=== PATIENT | male | born 1935 | race Caucasian/White ===

== ENCOUNTER 2017-08-25 23:30 | Inpatient (IN) ==
[2017-08-25] MEDS ORDERED: HYDROmorphone 2 MG/1 ML VIAL IV STA (23:59)
[2017-08-25] MEDS ORDERED: ONDANSETRON 4 MG/2 ML VIAL IV STA (23:59)
[2017-08-26] MEDS ORDERED: ONDANSETRON 4 MG/2 ML VIAL ONE (01:18)
[2017-08-26] MEDS ORDERED: HYDROmorphone 2 MG/1 ML VIAL ONE (01:18)
[2017-08-26 01:35] LABS: Basophils % 0.3 % (0.0-0.8); Eosinophils # 0.2 10*3/uL (0.0-0.87); Eosinophils % 1.7 % (0.00-10.9); Hematocrit 37.6 VOL% (42.0-52.0); Immature Granulocytes % 0.8 %; Immature Granulocytes Absolute 0.11 #; Lymphocytes % 7.7 % (21.2-54.2); Mean Corpuscular HGB Conc 31.9 GM/DL (32-36); Mean Corpuscular Hemoglobin 29 PG (27-34); Mean Corpuscular Volume 91.5 FL (87-102); Mean Platelet Volume 10.9 FL (9.6-12.0); Monocytes % 7.3 % (1.7-12.7); Neutrophils # 10.9 10*3/uL (1.4-7.4); Neutrophils % 82.2 % (38.7-73.9); Platelet Count 168 T/CUMM (130-400); Red Blood Count 4.11 MC/CUMM (3.8-5.5); Red Cell Distribution Width 14.8 % (9.3-17.3); White Blood Count 13.2 T/CUMM (4-12)
[2017-08-26 02:11] LABS: Albumin 3.2 G/DL (3.4-5.0); Bilirubin,Total 0.7 MG/DL (0.2-1.0); Calcium 8.4 MG/DL (8.5-10.1); Osmolality,Calculated 285.4 MOS/KG (273-304); Potassium 4.3 MMOL/L (3.5-5.1); Total Protein 5.5 G/DL (6.4-8.3)
[2017-08-26] MEDS ORDERED: HYDROmorphone 2 MG/1 ML VIAL IV ONE (03:40)
[2017-08-26] MEDS ORDERED: ONDANSETRON 4 MG/2 ML VIAL IV PRN (04:11)
[2017-08-26] MEDS: SODIUM CHLORIDE 0.9% 1,000 ML IV SCH ×2 (04:39→18:34)
[2017-08-26] MEDS: PANTOPRAZOLE 40 MG VIAL IV SCH (10:15)
[2017-08-26] MEDS: HYDROmorphone 2 MG/1 ML VIAL IV PRN ×3 (10:20→18:31)
[2017-08-26] MEDS: AMIODARONE 200 MG TABLET PO SCH (13:51)
[2017-08-26] MEDS: BUDESONIDE 0.5 MG/2 ML NEB RESP TX SCH ×2 (14:00→19:46)
[2017-08-26] MEDS: IPRATROPIUM 500 MCG/2.5 ML NEB RESP TX SCH ×2 (14:00→19:45)
[2017-08-26] MEDS: CYCLOBENZAPRINE 10 MG TABLET PO SCH (20:55)
[2017-08-27] MEDS: HYDROmorphone 2 MG/1 ML VIAL IV PRN ×5 (01:32→19:25)
[2017-08-27 06:50] LABS: Free T4 (Free Thyroxine) 0.89 NG/DL (0.76-1.46); Thyroid Stimulating Hormone 9.61 uIU/ml (0.358-3.74)
[2017-08-27] MEDS: IPRATROPIUM 500 MCG/2.5 ML NEB RESP TX SCH ×2 (06:58→19:34)
[2017-08-27] MEDS: BUDESONIDE 0.5 MG/2 ML NEB RESP TX SCH ×2 (06:58→19:34)
[2017-08-27] MEDS: PANTOPRAZOLE 40 MG VIAL IV SCH (09:41)
[2017-08-27] MEDS: AMIODARONE 200 MG TABLET PO SCH (09:48)
[2017-08-27 12:26] LABS: Prostate Specific Antigen Diag 2.1 NG/ML (0-4)
[2017-08-27] MEDS: SODIUM CHLORIDE 0.9% 1,000 ML IV SCH ×2 (14:34→21:30)
[2017-08-27] MEDS: CYCLOBENZAPRINE 10 MG TABLET PO SCH (21:31)
[2017-08-28] MEDS: HYDROmorphone 2 MG/1 ML VIAL IV PRN ×2 (03:20→15:37)
[2017-08-28 06:30] LABS: Basophils % 0.2 % (0.0-0.8); Eosinophils % 0.4 % (0.00-10.9); Hematocrit 27.3 VOL% (42.0-52.0); Hemoglobin 8.4 GM/DL (14.0-18.0); Immature Granulocytes % 0.9 %; Immature Granulocytes Absolute 0.09 #; Lymphocytes # 0.8 10*3/uL (1.4-4.0); Lymphocytes % 7.5 % (21.2-54.2); Mean Corpuscular HGB Conc 30.8 GM/DL (32-36); Mean Corpuscular Hemoglobin 29 PG (27-34); Mean Corpuscular Volume 94.5 FL (87-102); Mean Platelet Volume 11.5 FL (9.6-12.0); Monocytes % 9.3 % (1.7-12.7); Neutrophils # 8.6 10*3/uL (1.4-7.4); Neutrophils % 81.7 % (38.7-73.9); Platelet Count 150 T/CUMM (130-400); Red Blood Count 2.89 MC/CUMM (3.8-5.5); Red Cell Distribution Width 15.2 % (9.3-17.3); White Blood Count 10.5 T/CUMM (4-12)
[2017-08-28 07:06] LABS: Potassium 4.4 MMOL/L (3.5-5.1)
[2017-08-28] MEDS: BUDESONIDE 0.5 MG/2 ML NEB RESP TX SCH ×2 (07:35→19:18)
[2017-08-28] MEDS: IPRATROPIUM 500 MCG/2.5 ML NEB RESP TX SCH (07:35)
[2017-08-28] MEDS: AMIODARONE 200 MG TABLET PO SCH (08:09)
[2017-08-28] MEDS: PANTOPRAZOLE 40 MG VIAL IV SCH (08:09)
[2017-08-28 09:48] LABS: Albumin (SPE) Rel % 64.1 %; Total Protein (Chem) 4.6 G/DL (6.4-8.3)
[2017-08-28 09:49] LABS: Alpha 1 (SPE) 0.1 G/DL (0.1-0.4); Alpha 1 (SPE) Rel % 2.9 %; Alpha 2 (SPE) 0.6 G/DL (0.4-1.0); Alpha 2 (SPE) Rel % 13.6 %; Beta (SPE) 0.5 G/DL (0.5-1.1); Beta (SPE) Rel % 10.7 %; Gamma (SPE) 0.4 G/DL (0.7-1.7); Gamma (SPE) Rel % 8.7 %
[2017-08-28] MEDS ORDERED: ceFAZolin 1,000 MG VIAL ONE (13:11)
[2017-08-28] MEDS ORDERED: TRANEXAMIC ACID 1,000 MG/10 ML VIAL IV ONE (13:19)
[2017-08-28] MEDS: ALBUTEROL/IPRATROPIUM 3 ML NEB RESP TX SCH ×2 (13:30→19:18)
[2017-08-28] MEDS ORDERED: ceFAZolin 2,000 MG in PREMIX 1 EACH IV ONE (15:00)
[2017-08-28] MEDS: SODIUM CHLORIDE 0.9% 1,000 ML IV SCH ×2 (15:14→22:23)
[2017-08-28 15:16] LABS: Apearance,Urine CLEAR (Clear); Bilirubin,Urine Negative (Negative); Blood, Urine Negative (Negative); Glucose,Urine (UA) Negative (Negative); Ketones,Urine Negative (Negative); Mucus,Urine Occasional /LPF (Occasional); Nitrite,Urine Negative (Negative); Protein,Urine Negative; RBC,Urine 1 /HPF (0-4); Squamous Epithelial Cell,Urine Occasional /HPF (0-10); Urine Color Yellow (Yellow); Urine Specific Gravity 1.018 (1.001-1.035)
[2017-08-28 15:19] LABS: Basophils % 0.3 % (0.0-0.8); Eosinophils # 0.1 10*3/uL (0.0-0.87); Eosinophils % 0.6 % (0.00-10.9); Hematocrit 35.3 VOL% (42.0-52.0); Hemoglobin 11.2 GM/DL (14.0-18.0); Immature Granulocytes Absolute 0.11 #; Lymphocytes # 1.1 10*3/uL (1.4-4.0); Lymphocytes % 9.8 % (21.2-54.2); Mean Corpuscular HGB Conc 31.7 GM/DL (32-36); Mean Corpuscular Hemoglobin 30 PG (27-34); Mean Corpuscular Volume 94.1 FL (87-102); Mean Platelet Volume 11.1 FL (9.6-12.0); Monocytes # 1.1 10*3/uL (0.11-0.8); Monocytes % 10.2 % (1.7-12.7); Neutrophils # 8.4 10*3/uL (1.4-7.4); Neutrophils % 78.1 % (38.7-73.9); Platelet Count 149 T/CUMM (130-400); Red Blood Count 3.75 MC/CUMM (3.8-5.5); White Blood Count 10.8 T/CUMM (4-12)
[2017-08-28] MEDS ORDERED: NEOSTIGMINE 10 MG/10 ML VIAL ONE (15:24)
[2017-08-28] MEDS ORDERED: ONDANSETRON 4 MG/2 ML VIAL ONE (15:24)
[2017-08-28] MEDS ORDERED: SEVOFLURANE 1 UNIT/15 MINUTE INH ONE (15:24)
[2017-08-28] MEDS ORDERED: fentaNYL 100 MCG/2 ML VIAL ONE (15:24)
[2017-08-28] MEDS ORDERED: GLYCOPYRROLATE 0.4 MG/2 ML VIAL ONE (15:24)
[2017-08-28] MEDS ORDERED: ACETAMINOPHEN 1,000 MG/100 ML VIAL IV ONE (15:25)
[2017-08-28] MEDS ORDERED: ETOMIDATE 40 MG/20 ML VIAL IV ONE (15:25)
[2017-08-28] MEDS ORDERED: ROCURONIUM 100 MG/10 ML VIAL IV ONE (15:26)
[2017-08-28] MEDS ORDERED: HYDROmorphone 2 MG/1 ML VIAL ONE (15:37)
[2017-08-28 15:47] LABS: Calcium 7.7 MG/DL (8.5-10.1); Osmolality,Calculated 283.4 MOS/KG (273-304); Potassium 4.6 MMOL/L (3.5-5.1)
[2017-08-28] MEDS ORDERED: PROMETHAZINE 25 MG/1 ML VIAL IM PRN (16:18)
[2017-08-28] MEDS ORDERED: MORPHINE 10 MG/1 ML VIAL IM PRN (16:18)
[2017-08-28] MEDS: CYCLOBENZAPRINE 10 MG TABLET PO SCH (20:50)
[2017-08-29] MEDS: LEVOTHYROXINE 25 MCG TABLET PO SCH (06:21)
[2017-08-29 06:26] LABS: Basophils % 0.3 % (0.0-0.8); Eosinophils # 0.2 10*3/uL (0.0-0.87); Eosinophils % 1.6 % (0.00-10.9); Hematocrit 31.6 VOL% (42.0-52.0); Hemoglobin 10.5 GM/DL (14.0-18.0); Immature Granulocytes % 0.7 %; Immature Granulocytes Absolute 0.07 #; Lymphocytes # 0.7 10*3/uL (1.4-4.0); Lymphocytes % 7.5 % (21.2-54.2); Mean Corpuscular HGB Conc 33.2 GM/DL (32-36); Mean Corpuscular Hemoglobin 30 PG (27-34); Mean Corpuscular Volume 90.8 FL (87-102); Mean Platelet Volume 11.4 FL (9.6-12.0); Monocytes % 10.6 % (1.7-12.7); Neutrophils # 7.4 10*3/uL (1.4-7.4); Neutrophils % 79.3 % (38.7-73.9); Platelet Count 171 T/CUMM (130-400); Red Blood Count 3.48 MC/CUMM (3.8-5.5); Red Cell Distribution Width 15.5 % (9.3-17.3); White Blood Count 9.4 T/CUMM (4-12)
[2017-08-29 06:49] LABS: Lymphocytes 5 % (20-55); Segmented Neutrophils 87 % (50-85); Total Cells Counted 100
[2017-08-29 06:50] LABS: Microcytosis 1+; Ovalocytes Slight
[2017-08-29 06:51] LABS: Platelet Estimate Adequate
[2017-08-29 07:01] LABS: Calcium 7.6 MG/DL (8.5-10.1); Calcium 7.7 MG/DL (8.5-10.1); Osmolality,Calculated 283.3 MOS/KG (273-304); Potassium 4.2 MMOL/L (3.5-5.1)
[2017-08-29] MEDS ORDERED: ceFAZolin 2,000 MG in PREMIX 1 EACH IV ONE (07:24)
[2017-08-29] MEDS: ALBUTEROL/IPRATROPIUM 3 ML NEB RESP TX SCH ×3 (07:25→19:08)
[2017-08-29] MEDS: BUDESONIDE 0.5 MG/2 ML NEB RESP TX SCH ×2 (07:25→19:08)
[2017-08-29] MEDS: PANTOPRAZOLE 40 MG VIAL IV SCH (09:48)
[2017-08-29] MEDS: oxyCODONE/ACETAMINOPHEN 5-325 MG TABLET PO PRN (09:48)
[2017-08-29] MEDS: AMIODARONE 200 MG TABLET PO SCH (09:49)
[2017-08-29] MEDS ORDERED: FONDAPARINUX 2.5 MG/0.5 ML SYRINGE SUBCUT SCH (13:30)
[2017-08-29] MEDS: CARVEDILOL 3.125 MG TABLET PO SCH ×2 (13:39→21:23)
[2017-08-29] MEDS: APIXABAN 2.5 MG TABLET PO SCH ×2 (13:39→21:24)
[2017-08-29] MEDS: CYCLOBENZAPRINE 10 MG TABLET PO SCH (21:24)
[2017-08-29] MEDS: LISINOPRIL 2.5 MG TABLET PO SCH (21:25)
[2017-08-30] MEDS: oxyCODONE/ACETAMINOPHEN 5-325 MG TABLET PO PRN ×2 (01:07→16:29)
[2017-08-30] MEDS: LEVOTHYROXINE 25 MCG TABLET PO SCH (06:11)
[2017-08-30 06:31] LABS: Basophils % 0.2 % (0.0-0.8); Eosinophils # 0.2 10*3/uL (0.0-0.87); Hematocrit 31.4 VOL% (42.0-52.0); Hemoglobin 10.2 GM/DL (14.0-18.0); Immature Granulocytes Absolute 0.09 #; Lymphocytes # 0.9 10*3/uL (1.4-4.0); Lymphocytes % 10.3 % (21.2-54.2); Mean Corpuscular HGB Conc 32.5 GM/DL (32-36); Mean Corpuscular Hemoglobin 30 PG (27-34); Mean Corpuscular Volume 90.8 FL (87-102); Mean Platelet Volume 11.4 FL (9.6-12.0); Monocytes % 11.2 % (1.7-12.7); Neutrophils # 6.8 10*3/uL (1.4-7.4); Neutrophils % 75.3 % (38.7-73.9); Platelet Count 188 T/CUMM (130-400); Red Blood Count 3.46 MC/CUMM (3.8-5.5); Red Cell Distribution Width 15.6 % (9.3-17.3); White Blood Count 9.1 T/CUMM (4-12)
[2017-08-30 06:52] LABS: Giant Platelets Few; Hypochromasia 1+; Ovalocytes Slight; Platelet Estimate Normal
[2017-08-30 06:53] LABS: Microcytosis Slight
[2017-08-30 07:02] LABS: Calcium 7.9 MG/DL (8.5-10.1); Osmolality,Calculated 285.3 MOS/KG (273-304); Potassium 4.1 MMOL/L (3.5-5.1)
[2017-08-30] MEDS: ALBUTEROL/IPRATROPIUM 3 ML NEB RESP TX SCH ×3 (07:21→20:53)
[2017-08-30] MEDS: BUDESONIDE 0.5 MG/2 ML NEB RESP TX SCH ×2 (07:21→20:53)
[2017-08-30] MEDS: AMIODARONE 200 MG TABLET PO SCH (09:12)
[2017-08-30] MEDS: CARVEDILOL 3.125 MG TABLET PO SCH ×2 (09:12→21:46)
[2017-08-30] MEDS: PRAVASTATIN 40 MG TABLET PO SCH (09:12)
[2017-08-30] MEDS: PANTOPRAZOLE 40 MG TABLET PO SCH (09:12)
[2017-08-30] MEDS: ASPIRIN EC 81 MG TABLET PO SCH (09:12)
[2017-08-30] MEDS: LISINOPRIL 2.5 MG TABLET PO SCH ×2 (09:12→21:46)
[2017-08-30] MEDS: APIXABAN 2.5 MG TABLET PO SCH ×2 (09:12→21:46)
[2017-08-30] MEDS ORDERED: ACETAMINOPHEN 325 MG TABLET PO PRN (10:53)
[2017-08-30] MEDS: BISACODYL 5 MG TABLET PO SCH (11:10)
[2017-08-30] MEDS ORDERED: FUROSEMIDE 20 MG/2 ML VIAL IV ONE (16:08)
[2017-08-30] MEDS: PHENOL 1.4% THROAT SPRAY 177 ML BOTTLE PO PRN (16:30)
[2017-08-30] MEDS ORDERED: FUROSEMIDE 20 MG/2 ML VIAL IV SCH (16:30)
[2017-08-30] MEDS: CYCLOBENZAPRINE 10 MG TABLET PO SCH (21:46)
[2017-08-31] MEDS: LEVOTHYROXINE 25 MCG TABLET PO SCH (06:32)
[2017-08-31 07:11] LABS: Calcium 7.9 MG/DL (8.5-10.1); Osmolality,Calculated 289.1 MOS/KG (273-304)
[2017-08-31] MEDS: BUDESONIDE 0.5 MG/2 ML NEB RESP TX SCH (08:25)
[2017-08-31] MEDS: ALBUTEROL/IPRATROPIUM 3 ML NEB RESP TX SCH (08:25)
[2017-08-31] MEDS: oxyCODONE/ACETAMINOPHEN 5-325 MG TABLET PO PRN (09:23)
[2017-08-31] MEDS: AMIODARONE 200 MG TABLET PO SCH (09:23)
[2017-08-31] MEDS: LISINOPRIL 2.5 MG TABLET PO SCH (09:23)
[2017-08-31] MEDS: APIXABAN 2.5 MG TABLET PO SCH (09:23)
[2017-08-31] MEDS: PRAVASTATIN 40 MG TABLET PO SCH (09:23)
[2017-08-31] MEDS: PHENOL 1.4% THROAT SPRAY 177 ML BOTTLE PO PRN (09:23)
[2017-08-31] MEDS: CARVEDILOL 3.125 MG TABLET PO SCH (09:23)
[2017-08-31] MEDS: PANTOPRAZOLE 40 MG TABLET PO SCH (09:23)
[2017-08-31] MEDS: ASPIRIN EC 81 MG TABLET PO SCH (09:23)
[2017-08-31] MEDS: BISACODYL 5 MG TABLET PO SCH (09:23)
[2017-08-31 11:27] VITALS: BP 132/65
== END 2017-08-31 13:30 | disposition swing bed (61) | DRG 481 ==
LOC: EDUNIT# → EDBD → N.ED 23:30 → SUATTDRO 08-26 02:49 → N.EDINP 08-26 02:49 → N.3E 08-26 03:24
PROVIDERS: ADMIT Internal Medicine; ATTEND Internal Medicine

== ENCOUNTER 2018-12-29 10:51 | Inpatient (IN) ==
[2018-12-29] MEDS ORDERED: ACETAMINOPHEN 325 MG TABLET PO PRN (14:07)
[2018-12-29] MEDS: PANTOPRAZOLE 40 MG VIAL IV SCH ×2 (14:19→22:02)
[2018-12-29] MEDS ORDERED: SODIUM CHLORIDE 0.9% 1,000 ML IV SCH (14:30)
[2018-12-29 14:57] LABS: Hematocrit 37.8 VOL% (42.0-52.0); Hemoglobin 11.5 GM/DL (14.0-18.0)
[2018-12-29 15:06] LABS: INR 1.1; PT Patient Result 11.4 SECS; Partial Thromboplastin Time 29.2 SECS (0-40)
[2018-12-29 15:15] LABS: Albumin 3.2 G/DL (3.4-5.0); Bilirubin,Direct 0.22 MG/DL (0.0-0.20); Bilirubin,Indirect 0.5 MG/DL (0.0-1.0); Bilirubin,Total 0.7 MG/DL (0.2-1.0); Total Protein 5.6 G/DL (6.4-8.3)
[2018-12-29 15:22] LABS: Risk Ratio 2.84; Thyroid Stimulating Hormone 1.38 uIU/ml (0.358-3.74)
[2018-12-29 17:55] LABS: Hematocrit 39.3 VOL% (42.0-52.0); Hemoglobin 11.8 GM/DL (14.0-18.0)
[2018-12-29] MEDS: CARVEDILOL 3.125 MG TABLET PO SCH (22:02)
[2018-12-29] MEDS: SIMVASTATIN 20 MG TABLET PO SCH (22:02)
[2018-12-29 22:31] LABS: Hematocrit 39.7 VOL% (42.0-52.0); Hemoglobin 12.1 GM/DL (14.0-18.0)
[2018-12-30 02:45] LABS: Basophils # 0.1 10*3/uL (0.0-0.2); Basophils % 0.5 % (0.0-0.8); Eosinophils # 0.6 10*3/uL (0.0-0.87); Eosinophils % 5.2 % (0.00-10.9); Hematocrit 36.9 VOL% (42.0-52.0); Hemoglobin 11.4 GM/DL (14.0-18.0); Immature Granulocytes % 0.5 %; Immature Granulocytes Absolute 0.06 #; Lymphocytes # 1.6 10*3/uL (1.4-4.0); Lymphocytes % 14.4 % (21.2-54.2); Mean Corpuscular HGB Conc 30.9 GM/DL (32-36); Mean Corpuscular Volume 93.9 FL (87-102); Mean Platelet Volume 10.7 FL (9.6-12.0); Monocytes % 7.8 % (1.7-12.7); Neutrophils % 71.6 % (38.7-73.9); Platelet Count 183 T/CUMM (130-400); Red Blood Count 3.93 MC/CUMM (3.8-5.5); Red Cell Distribution Width 14.1 % (9.3-17.3); White Blood Count 11.2 T/CUMM (4-12)
[2018-12-30 03:04] LABS: Albumin 3.2 G/DL (3.4-5.0); Bilirubin,Total 0.8 MG/DL (0.2-1.0); Calcium 8.6 MG/DL (8.5-10.1); Osmolality,Calculated 290.7 MOS/KG (273-304); Total Protein 5.6 G/DL (6.4-8.3)
[2018-12-30 05:16] LABS: Hematocrit 36.1 VOL% (42.0-52.0); Hemoglobin 11.2 GM/DL (14.0-18.0)
[2018-12-30] MEDS: LEVOTHYROXINE 25 MCG TABLET PO SCH (06:29)
[2018-12-30] MEDS: BISACODYL 5 MG TABLET PO SCH ×3 (06:29→23:14)
[2018-12-30] MEDS ORDERED: ALBUTEROL/IPRATROPIUM 3 ML NEB RESP TX PRN (08:56)
[2018-12-30] MEDS: CARVEDILOL 3.125 MG TABLET PO SCH ×2 (09:13→21:26)
[2018-12-30] MEDS: LISINOPRIL 10 MG TABLET PO SCH (09:13)
[2018-12-30] MEDS: PANTOPRAZOLE 40 MG VIAL IV SCH ×2 (09:13→21:26)
[2018-12-30] MEDS ORDERED: ONDANSETRON 4 MG TABLET PO PRN (16:29)
[2018-12-30] MEDS ORDERED: ONDANSETRON 4 MG/2 ML VIAL IV PRN (16:50)
[2018-12-30] MEDS ORDERED: POLYETHYLENE GLYCOL POWDER 255 GM BOTTLE PO ONE (18:00)
[2018-12-30] MEDS ORDERED: MAGNESIUM CITRATE 300 ML BOTTLE PO ONE (21:00)
[2018-12-30] MEDS: SIMVASTATIN 20 MG TABLET PO SCH (21:26)
[2018-12-31 05:33] LABS: Basophils # 0.1 10*3/uL (0.0-0.2); Basophils % 0.6 % (0.0-0.8); Eosinophils # 0.9 10*3/uL (0.0-0.87); Hematocrit 37.1 VOL% (42.0-52.0); Hemoglobin 11.5 GM/DL (14.0-18.0); Immature Granulocytes % 0.5 %; Immature Granulocytes Absolute 0.05 #; Lymphocytes # 1.6 10*3/uL (1.4-4.0); Mean Corpuscular Volume 94.4 FL (87-102); Monocytes % 9.7 % (1.7-12.7); Neutrophils % 66.2 % (38.7-73.9); Platelet Count 194 T/CUMM (130-400); Red Blood Count 3.93 MC/CUMM (3.8-5.5); Red Cell Distribution Width 14.2 % (9.3-17.3); White Blood Count 10.8 T/CUMM (4-12)
[2018-12-31 05:56] LABS: Bilirubin,Total 0.6 MG/DL (0.2-1.0); Calcium 8.7 MG/DL (8.5-10.1); Osmolality,Calculated 280.3 MOS/KG (273-304); Total Protein 5.5 G/DL (6.4-8.3)
[2018-12-31] MEDS: LEVOTHYROXINE 25 MCG TABLET PO SCH (06:10)
[2018-12-31] MEDS ORDERED: LACTATED RINGERS 1,000 ML IV SCH (08:00)
[2018-12-31] MEDS ORDERED: PHENYLEPHRINE 1 MG/10 ML SYRINGE IV ONE (09:00)
[2018-12-31] MEDS ORDERED: LIDOCAINE 100 MG/5 ML SYRINGE ONE (09:00)
[2018-12-31] MEDS ORDERED: PROPOFOL 200 MG/20 ML VIAL IV ONE (09:00)
[2018-12-31] MEDS: LISINOPRIL 10 MG TABLET PO SCH (09:53)
[2018-12-31] MEDS: CARVEDILOL 3.125 MG TABLET PO SCH ×2 (09:53→21:40)
[2018-12-31] MEDS: PANTOPRAZOLE 40 MG VIAL IV SCH ×2 (09:53→21:40)
[2018-12-31] MEDS: SIMVASTATIN 20 MG TABLET PO SCH (21:39)
[2019-01-01 05:04] LABS: Basophils # 0.1 10*3/uL (0.0-0.2); Basophils % 0.5 % (0.0-0.8); Eosinophils # 0.9 10*3/uL (0.0-0.87); Eosinophils % 9.4 % (0.00-10.9); Hematocrit 36.6 VOL% (42.0-52.0); Immature Granulocytes % 0.5 %; Immature Granulocytes Absolute 0.05 #; Lymphocytes # 1.7 10*3/uL (1.4-4.0); Lymphocytes % 17.2 % (21.2-54.2); Mean Corpuscular HGB Conc 30.1 GM/DL (32-36); Mean Corpuscular Volume 95.8 FL (87-102); Mean Platelet Volume 11.4 FL (9.6-12.0); Monocytes % 8.8 % (1.7-12.7); Neutrophils % 63.6 % (38.7-73.9); Platelet Count 199 T/CUMM (130-400); Red Blood Count 3.82 MC/CUMM (3.8-5.5); Red Cell Distribution Width 14.4 % (9.3-17.3); White Blood Count 9.7 T/CUMM (4-12)
[2019-01-01 05:46] LABS: Albumin 2.9 G/DL (3.4-5.0); Bilirubin,Total 0.6 MG/DL (0.2-1.0); Calcium 7.9 MG/DL (8.5-10.1); Osmolality,Calculated 290.6 MOS/KG (273-304); Total Protein 5.3 G/DL (6.4-8.3)
[2019-01-01] MEDS: LEVOTHYROXINE 25 MCG TABLET PO SCH (06:37)
[2019-01-01] MEDS: CARVEDILOL 3.125 MG TABLET PO SCH (08:38)
[2019-01-01] MEDS: LISINOPRIL 10 MG TABLET PO SCH (08:39)
[2019-01-01] MEDS: PANTOPRAZOLE 40 MG VIAL IV SCH (08:39)
[2019-01-01] MEDS ORDERED: amLODIPine 2.5 MG TABLET PO SCH (09:00)
[2019-01-01 13:32] VITALS: BP 123/62
[2019-01-02] MEDS ORDERED: PANTOPRAZOLE 40 MG TABLET PO SCH (09:00)
== END 2019-01-01 12:50 | disposition home or self-care (01) | DRG 394 ==
LOC: N.2E 12:40 → SUATTDRO 12:40
PROVIDERS: ADMIT Internal Medicine; ATTEND Internal Medicine

== ENCOUNTER 2020-04-15 09:10 | Inpatient (IN) ==
[2020-04-15 09:44] LABS: Basophils # 0.1 10*3/uL (0.0-0.2); Basophils % 0.4 % (0.0-0.8); Eosinophils # 0.2 10*3/uL (0.0-0.87); Eosinophils % 1.1 % (0.00-10.9); Hematocrit 44.5 VOL% (42.0-52.0); Hemoglobin 13.9 GM/DL (14.0-18.0); Immature Granulocytes % 0.7 %; Immature Granulocytes Absolute 0.15 #; Mean Corpuscular HGB Conc 31.2 GM/DL (32-36); Mean Corpuscular Volume 96.5 FL (87-102); Mean Platelet Volume 11.3 FL (9.6-12.0); Monocytes % 5.3 % (1.7-12.7); Neutrophils % 87.5 % (38.7-73.9); Platelet Count 203 T/CUMM (130-400); Red Blood Count 4.61 MC/CUMM (3.8-5.5); Red Cell Distribution Width 14.5 % (9.3-17.3); White Blood Count 20.2 T/CUMM (4-12)
[2020-04-15 10:06] LABS: Hypochromasia 1+; Lymphocytes 6 % (20-55); Segmented Neutrophils 89 % (50-85); Total Cells Counted 100
[2020-04-15 10:07] LABS: Albumin 3.5 G/DL (3.4-5.0); Bilirubin,Total 0.8 MG/DL (0.2-1.0); Calcium 9.1 MG/DL (8.5-10.1); Macrocytosis Slight; Platelet Estimate Normal; Total Protein 6.7 G/DL (6.4-8.3)
[2020-04-15] MEDS ORDERED: methylPREDNISolone SOD SUC 125 MG/2 ML VIAL IV STA (11:05)
[2020-04-15] MEDS ORDERED: ALBUTEROL 2.5 MG/3 ML NEB RESP TX STA (11:05)
[2020-04-15] MEDS ORDERED: LEVOFLOXACIN INJ 500 MG in PREMIX 1 EACH IV STA (13:09)
[2020-04-15] MEDS ORDERED: FUROSEMIDE 20 MG TABLET PO PRN (15:53)
[2020-04-15] MEDS ORDERED: HydrOXYzine PAMOATE 50 MG CAPSULE PO PRN (15:53)
[2020-04-15] MEDS ORDERED: GLUCAGON 1 MG VIAL IM PRN (15:57)
[2020-04-15] MEDS ORDERED: ONDANSETRON 4 MG/2 ML VIAL IV PRN (15:57)
[2020-04-15] MEDS ORDERED: ACETAMINOPHEN 325 MG TABLET PO PRN (15:57)
[2020-04-15] MEDS ORDERED: DEXTROSE 50% 25 GM/50 ML VIAL IV PRN (15:57)
[2020-04-15] MEDS ORDERED: AZITHROMYCIN 250 MG TABLET PO ONE (15:57)
[2020-04-15 16:43] LABS: Risk Ratio 3.39; Thyroid Stimulating Hormone 0.44 uIU/ml (0.358-3.74); VLDL CHOLESTEROL 25.8 MG/DL
[2020-04-15] MEDS ORDERED: cefTRIAXone 1,000 MG in SYRINGE 1 EACH IV SCH (17:00)
[2020-04-15] MEDS: PANTOPRAZOLE 40 MG TABLET PO SCH (18:36)
[2020-04-15] MEDS: methylPREDNISolone SOD SUC 40 MG/1 ML VIAL IV SCH (18:38)
[2020-04-15] MEDS: SODIUM CHLORIDE 0.45% 1,000 ML IV SCH (18:55)
[2020-04-15] MEDS: ALBUTEROL/IPRATROPIUM 3 ML NEB RESP TX SCH (19:07)
[2020-04-15] MEDS ORDERED: BUDESONIDE 0.5 MG/2 ML NEB RESP TX SCH (21:00)
[2020-04-15] MEDS ORDERED: DONEPEZIL 5 MG TABLET PO SCH (21:00)
[2020-04-15] MEDS ORDERED: SIMVASTATIN 20 MG TABLET PO SCH (21:00)
[2020-04-15] MEDS: BRIMONIDINE 0.2% OPH SOLN 5 ML BOTTLE BOTH EYES SCH (21:28)
[2020-04-15] MEDS: APIXABAN 2.5 MG TABLET PO SCH (21:28)
[2020-04-15] MEDS: carvediloL 6.25 MG TABLET PO SCH (21:28)
[2020-04-16] MEDS: methylPREDNISolone SOD SUC 40 MG/1 ML VIAL IV SCH ×2 (00:37→08:18)
[2020-04-16] MEDS: ALBUTEROL/IPRATROPIUM 3 ML NEB RESP TX SCH ×2 (00:49→07:32)
[2020-04-16 04:43] LABS: Basophils % 0.1 % (0.0-0.8); Hemoglobin 12.2 GM/DL (14.0-18.0); Immature Granulocytes % 1.4 %; Lymphocytes # 0.9 10*3/uL (1.4-4.0); Lymphocytes % 6.1 % (21.2-54.2); Mean Corpuscular HGB Conc 31.3 GM/DL (32-36); Mean Corpuscular Volume 96.1 FL (87-102); Monocytes % 4.3 % (1.7-12.7); Neutrophils % 88.1 % (38.7-73.9); Platelet Count 175 T/CUMM (130-400); Red Blood Count 4.06 MC/CUMM (3.8-5.5); Red Cell Distribution Width 14.2 % (9.3-17.3); White Blood Count 14.7 T/CUMM (4-12)
[2020-04-16 05:17] LABS: Calcium 8.8 MG/DL (8.5-10.1); Osmolality,Calculated 290.3 MOS/KG (273-304)
[2020-04-16] MEDS ORDERED: LEVOTHYROXINE 75 MCG TABLET PO SCH (06:30)
[2020-04-16] MEDS ORDERED: MONTELUKAST 10 MG TABLET PO SCH (06:30)
[2020-04-16] MEDS ORDERED: BUDESONIDE 0.5 MG/2 ML NEB RESP TX SCH (07:00)
[2020-04-16] MEDS ORDERED: TAMSULOSIN 0.4 MG CAPSULE PO SCH (09:00)
[2020-04-16] MEDS ORDERED: AZITHROMYCIN 250 MG TABLET PO SCH (09:00)
[2020-04-16] MEDS ORDERED: lisinopriL 10 MG TABLET PO SCH (09:00)
[2020-04-16] MEDS ORDERED: ASPIRIN EC 81 MG TABLET PO SCH (09:00)
[2020-04-16] MEDS ORDERED: allopurinoL 100 MG TABLET PO SCH (09:00)
[2020-04-16] MEDS: carvediloL 6.25 MG TABLET PO SCH (09:28)
[2020-04-16] MEDS: APIXABAN 2.5 MG TABLET PO SCH (09:28)
[2020-04-16] MEDS: BRIMONIDINE 0.2% OPH SOLN 5 ML BOTTLE BOTH EYES SCH (09:29)
[2020-04-16] MEDS: PANTOPRAZOLE 40 MG TABLET PO SCH (09:29)
[2020-04-16] MEDS: SODIUM CHLORIDE 0.45% 1,000 ML IV SCH (10:15)
[2020-04-16 11:47] VITALS: BP 125/57
[2020-04-16] MEDS ORDERED: DIGOXIN 0.125 MG TABLET PO SCH (13:00)
== END 2020-04-16 13:11 | disposition home or self-care (01) | DRG 191 ==
LOC: N.ED 09:10 → SUATTDRO 15:40 → N.EDINP 15:40 → N.5E 17:40
PROVIDERS: ADMIT Physician Assistant; ATTEND Emergency Medicine